=== PATIENT | male | born 1955 | race Caucasian/White ===

== ENCOUNTER → 2017-01-23 16:37 | Emergency (ER) | payer OTHER ==
[~2017-01-23 16:37] MED LIST: ABILIFY PO; ACIPHEX20 MG; ADVIL200 M2; ANTIVERT PO; ASPIRIN81 M1; ASPIRIN81 M1 PO; ASPIRIN81 M2 PO; ASPIRINEC PO; ATARAX PO; AZITHROMYCIN500 MG PO; BACTRIM DS TABL1 TA1 PO; BENTYL20 MG PO; BUPROPION XL300 MG PO; EC-NAPROSYN500 MG PO; GLUCOTROL10 MG PO; GLUCOVANCE PO; GLYNASE PO; HYDROXYZINE PAM25 MG PO; HYTRIN; IBUPROFEN600 MG PO; IBUPROFEN800 MG PO; JANUVIA PO; JANUVIA100 MG; JANUVIA25 MG PO; KLONOPIN0.5 MG PO; LANTUS100 U/ML SUBQ; LANTUS100 UNITS/; LANTUS100 UNITS/ SUBQ; LATUDA80 MG PO; LISINOPRIL; LITHIUM CARBON300 M1 PO; LITHIUM CARBON600 MG; LITHIUM PO; LOPID600 MG PO; MECLIZINE HCL25 M1 PO; MEDI-MECLIZINE25 M1 PO; MELATONIN3 MG PO; METFORMIN HCL500 M1 PO; METFORMIN PO; MOBIC; MOTRIN600 MG PO; NAPROXEN PO; NEXIUM PO; NORVASC PO; NORVASC10 MG PO; OMNICEF300 MG PO; PLAVIX PO; PRILOSEC PO; PRILOSEC20 M1; PRILOSEC20 MG PO; PROCARDIA XL PO; PROTONIX PO; SEROQUEL PO; SEROQUEL100 MG PO; SEROQUEL50 M1 PO; ST. JOSEPH ASPI81 M2 PO; TYLENOL325 M1 PO; VIAGRA PO; VICODIN PO; WELLBUTRIN PO; WELLBUTRIN SR200 MG PO; WELLBUTRIN XL150 M1 PO
== END | disposition left against medical advice (07) ==
LOC: CED 16:37
DX: Z53.21 Procedure and treatment not carried out due to patient leaving prior to being seen by health care provider (principal)

== ENCOUNTER 2017-02-27 05:26 | Inpatient (IN) | payer OTHER ==
--- NOTE | ~2017-02-27 | EKG ---
PATIENT: SAADIA FLOWERS UNIT #: [id number] Ventricular Rate: 87 BPM Atrial Rate: 87 BPM P-R Interval: 166 ms QRS Duration: 114 ms Q-T Interval: 400 ms QTC Calculation(Bezet): 481 ms P [place]: 56 degrees Calculated R [place]: -13 degrees Calculated T [place]: 46 degrees Diagnosis Line: Normal sinus rhythm Diagnosis Line: Incomplete right bundle branch block with Diagnosis Line: repolarization abnormality Baseline wander Diagnosis Line: Prolonged QT Diagnosis Line: Abnormal ECG Diagnosis Line: When compared with ECG of 11-SEP-2016 15:09, Diagnosis Line: QT has lengthened Diagnosis Line: Confirmed by ELVIRA BARNES MD ([id number]) on 03/01/2017 Diagnosis Line: 9:44:15 AM INTERPRETING MD: CAMERON HUFF
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
--- NOTE | ~2017-02-27 | CO ---
Unit #: [id number] #: [id number] Patient: SAADIA SHRESTHA [id number] [place], [place] [address] [id number] I MR#: [id number] NAME: SAADIA SHRESTHA. ROOM: 339 Age: 61 Sex: M Admission Date: 02/27/2017 : 1955 Attending Physician: Victoriano Del Cid M.D. Primary Care Physician: No Primary Care Physician Consultation Date: 03/02/2017 CONSULTATION REPORT REASON FOR CONSULTATION Followup. DISCUSSION Mr. Saadia Shrestha is a 61-year-old white male seen in room 339 bed-1 on 03/02/17. The patient was admitted with lithium toxicity, confusion and was in a manic state. Patient was also seen by neurology yesterday and stopped his Latuda, Seroquel due to extrapyramidal symptom. Patient's lithium was already discontinued due to lithium toxicity. [place] level 0.3. Patient was alert, oriented, able to sleep, able to answer questions coherently. Denied any thoughts of harming self or others or any hallucination. Patient is on a lower dosage of Wellbutrin 150 mg in the morning and seems to be doing fine. The patient is also on Klonopin. MENTAL STATUS EXAMINATION VITAL SIGNS: 97.3, 73, 20, 126/76. Oxygen saturation 98%. GENERAL APPEARANCE: Patient dressed casually in hospital attire, sitting comfortably in bed in the propped up position. Attention span and concentration fair. Speech - regular rate, coherent. Oriented in time, place and person. Mood and affect was labile. Thought process circumstantial. Thought content - patient denied any thoughts of harming self or others. Recent and remote memory fair. Language intact. Fund of knowledge fair. Insight and judgment fair to slightly impaired. DIAGNOSIS PSYCHIATRIC: Mood disorder, not otherwise specified - F31.89. [place] toxicity. ASSESSMENT/PLAN 1. Supportive psychotherapy and psychoeducation provided to patient. 2. Educated about benefits and side effects of medications and course and prognosis of illness. 3. Advised to continue with the current combination of medication, to keep the medication at a minimum as possible. Advised patient to follow up at partial hospitalization program at [facility] [place] upon discharge. Telephone number [phone]. Dictated by... Alfonso Carrasco M.D. Unit #: [id number] #: [id number] Patient: SAADIA SHRESTHA SANDY/camilo TD: 03/03/2017 10:15 JOB #: [id number] CONSULTATION REPORT Page 1 of 1 X Alfonso Carrasco MD X CONSULTATION REPORT
--- NOTE | ~2017-02-27 | CT71 ---
[facility] A Service of [facility] RADIOLOGY TEXT RESULTS PATIENT: SAADIA FLOWERS LOCATION: [facility] 339-01 : 55 UNIT #: [id number] AGE: [address]: Candace Walker MD SEX: M ORDER DR: [id number] [facility]. [place], [place] [address] [id number] I MR#: [id number] Acc #: [id number] NAME: SAADIA FLOWERS. : 1955 SEX: M STUDY DATE/TIME: 02/27/2017 9:08 UNIT: CEDOF ROOM: 78275 STUDY DESCRIPTION: CT Head Wo Contrast Attending Physician: Candace Walker M.D. Ordering Physician: Wily Decker M.D. Primary Care Physician: No Primary Care Physician MEDICAL IMAGING REPORT This report is preliminary unless electronic signature is present EXAM CT head without contrast INDICATION Confusion and dizziness today. TECHNIQUE CT of the head was performed without contrast. Comparison with 07/31/2010. This CT exam was performed with one or more of the following radiation dose reduction techniques: automatic exposure control, adjustment of mA and/or kV according to patient size, and iterative reconstruction. FINDINGS There is no evidence for intracranial hemorrhage. There is no evidence for acute cortical based infarction, focal mass lesion, or hydrocephalus. Carotid siphon calcifications. The included orbits and paranasal sinuses are unremarkable. The bone windows are unremarkable. IMPRESSION No acute intracranial abnormality. Dictated by... Delta Maldonado M.D. THIS IS AN ELECTRONICALLY VERIFIED REPORT Delta Maldonado M.D. at 02/27/2017 5:01 PM ARS/aa TD: 02/27/2017 11:18 JOB #: [id number] [facility] A Service of [facility] RADIOLOGY TEXT RESULTS PATIENT: SAADIA FLOWERS LOCATION: [facility] 339-01 : 55 UNIT #: [id number] AGE: [address]: Candace Walker MD SEX: M ORDER DR: MEDICAL IMAGING REPORT Page 1 of 1 COPY
--- NOTE | ~2017-02-27 | DS ---
Unit #: [id number] #: [id number] Patient: SAADIA FLOWERS [id number] [address] [id number] I MR#: [id number] NAME: SAADIA FLOWERS. ROOM: 339 Age: 61 Sex: M Admission Date: 02/27/2017 : 1955 Discharge Date: 03/02/2017 Attending Physician: Victoriano Del Cid M.D. DISCHARGE SUMMARY DISCHARGE DIAGNOSES 1. Bipolar disorder with marion with symptom of racing thoughts. 2. [place] toxicity. 3. Tardive dyskinesia secondary to antipsychotic usage. 4. Hypoglycemia. 5. Hyperlipidemia. 6. Gastroesophageal reflux disease, 7. Hepatic steatosis. 8. Thrombocytopenia likely due to antipsychotic usage. CONSULTANTS 1. Dr. Carrasco, Psychiatry. 2. Marita Christensen A.P.R.N., Neurology. PROCEDURES None. DIAGNOSTIC STUDIES LABORATORY ON DAY OF DISCHARGE: BMP with glucose 139, BUN 12, creatinine 0.9, sodium 140, potassium 3.9, chloride 110, CO2 of 25, calcium 9.2, total protein 5.8, albumin 3.6, total bilirubin 0.6, AST 16, ALT 22, and alkaline phosphatase of 54. Hemoglobin A1c is 6.4. CBC with WBC of 6.4, RBC 4.11, hemoglobin 13.2, hematocrit 38.1, MCV 92.8, MCH 32.1, MCHC 34.6, RDW 13.8, platelets 95,000, and MPV 10.6. IMAGING: CT head on February 27, 2017, impression: No acute intracranial abnormality. HOSPITAL COURSE The patient is a pleasant 61-year-old male with a past medical history of bipolar disorder, essential hypertension, hyperlipidemia, diabetes, GERD, and hepatic steatosis, who presented to the emergency department due to racing thoughts. Patient had not slept for five days. He stated that he had frequent falls. He denied hitting his head. He denied chest pain and denied any trouble breathing. He stated he had been taking his medications as prescribed. He stated that he sees a psychiatric through the [facility] and sees the psychiatrist almost every other month. In the emergency department, initial pulse was 95 and blood pressure was 149/90. CT of the head was unremarkable. [place] level was elevated at 1.4. Glucose check was 61. He was given one liter of normal saline and was admitted to [facility] for further evaluation. He was seen in consultation by Neurology due to extrapyramidal symptoms Unit #: [id number] #: [id number] Patient: SAADIA FLOWERS and frequent falls, who thought that his extrapyramidal symptoms were leading to his frequent falls. Therefore, they decided to hold off on all additional lithium usage and has been holding off on his Seroquel as well. With a concern for bipolar disorder, patient was seen in consultation by Dr. Carrasco of Psychiatry, who agreed that he should remain off of lithium due to lithium toxicity and recommended to reduce his Wellbutrin to 150 mg in the morning, as well as increasing Seroquel to 200 mg at bedtime. At this time, patient's symptoms have significantly improved, and patient and his are agreeable to being discharged home. Please note that after Psychiatry had seen the patient, Marita Christensen, of Neurology had spoken with Dr. Carrasco, who agreed to hold Seroquel, as well as holding lithium. The only question left is for patient's extrapyramidal activities. Neurology had started him on Klonopin, and I will defer to Neurology whether to continue and to prescribe it or not for this patient. DISCHARGE CONDITION Stable. [facility] two [facility]. ACTIVITY Patient can resume activities as prior to hospitalization. I am recommending that patient be seen by home health for continued PT and OT. DISCHARGE DIET Unrestricted. Patient may resume a heart-healthy diet as prior to hospitalization. DISCHARGE MEDICATIONS 1. Wellbutrin 150 mg orally every morning. 2. Metformin 1000 mg orally twice daily. 3. Januvia 100 mg orally daily. 4. Hydroxyzine 25 mg orally daily as needed for agitation. 5. Norvasc 5 mg orally daily. 6. Insulin 50 units subcutaneously at bedtime. 7. Melatonin 3 mg orally at bedtime. 8. Aspirin 81 mg orally daily. 9. Naproxen 500 mg orally twice daily as needed. 10. Prilosec 40 mg orally daily. 11. Viagra 100 mg orally daily as needed for ED. Dictated by... Alanis Wu PA-C for Victoriano Del Cid M.D. TP/am TD: 03/02/2017 17:03 JOB #: [id number] Dictated by... Alanis Wu PA-C for Unit #: [id number] #: [id number] Patient: SAADIA FLOWERS Victoriano Del Cid M.D. TP/am TD: 03/02/2017 17:37 JOB #: [id number] DISCHARGE SUMMARY Page 1 of 1 X X DISCHARGE SUMMARY
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
[~2017-02-27 05:26] MED LIST changes: -ASPIRIN81 M2 PO; -BUPROPION XL300 MG PO; -HYDROXYZINE PAM25 MG PO; -JANUVIA25 MG PO; -KLONOPIN0.5 MG PO; -LANTUS100 UNITS/ SUBQ; -LATUDA80 MG PO; -MECLIZINE HCL25 M1 PO; -MELATONIN3 MG PO; -NAPROXEN PO; -PRILOSEC PO; -SEROQUEL100 MG PO; -SEROQUEL50 M1 PO; -VIAGRA PO; -WELLBUTRIN XL150 M1 PO
[2017-02-27 06:22] LABS: BASOPHIL# 0.1 X10e3 (0-0.3); BASOPHIL% 0.8 % (0-2.5); EOSINOPHIL# 0.2 X10e3 (0-0.7); EOSINOPHIL% 1.3 % (0.0-7.0); HEMATOCRIT 38.3 % (38.0-50.0); HEMOGLOBIN 13.4 gm/dL (13.0-16.0); LYMPHOCYTE# 0.8 X10e3 (1.0-3.5); LYMPHOCYTE% 7.3 % (17.0-45.0); MEAN CELL VOLUME 91.9 FL (83-96); MEAN CORPUSCULAR HEMOGLOBIN 32.1 PG (28-34); MEAN PLATELET VOLUME 10.7 FL (6.5-11.5); MONOCYTE# 0.8 X10e3 (0-1.0); MONOCYTE% 7.5 % (3.0-12.0); NEUTROPHIL# 9.3 X10e3 (1.5-7.1); NEUTROPHIL% 83.1 % (40-75); PLATELET COUNT 103 X10e3 (140-420); RED BLOOD COUNT 4.16 X10e (3.90-5.60); RED CELL DISTRIBUTION WIDTH 13.4 % (11.0-15.5); WHITE BLOOD COUNT 11.2 X10e3 (4.0-10.5)
[2017-02-27 06:25] LABS: DIFF IND NO
[2017-02-27 06:55] LABS: ALBUMIN SERUM 4.3 g/dL (3.5-5.0); ALCOHOL BLOOD <5 mg/dL (0); ALKALINE PHOSPHATASE 56 U/L (32-92); ALT (SGPT) 25 U/L (10-40); AST (SGOT) 24 U/L (10-42); BILIRUBIN, DIRECT 0.1 mg/dL (0.0-0.2); BILIRUBIN,INDIRECT 0.7 mg/dL (0.0-0.9); BILIRUBIN,TOTAL 0.8 mg/dL (0.2-2.0); BLOOD UREA NITROGEN 17 mg/dL (9-23); BUN/CREATININE RATIO 15.45; CALCIUM SERUM 9.8 mg/dL (8.4-10.2); CARBON DIOXIDE 21 mmol/L (22-31); CHLORIDE 105 mmol/L (100-111); CREATININE SERUM 1.1 mg/dL (0.6-1.4); GLOM FILT RATE Estimated 72.1 mL/min (>60); GLUCOSE FASTING 166 mg/dL (70-110); POTASSIUM 3.8 mmol/L (3.5-5.1); PROTEIN TOTAL SERUM 6.5 g/dL (6.0-8.3); SODIUM 137 mmol/L (135-145)
[2017-02-27 07:14] LABS: URINE SOURCE CLEAN CATCH
[2017-02-27 07:21] LABS: URINE APPEARANCE CLEAR; URINE BILIRUBIN NEG (NEG); URINE BLOOD NEG (NEG); URINE COLOR YELLOW; URINE GLUCOSE NEG (NEG); URINE KETONE NEG (NEG); URINE LEUKOCYTE ESTERASE TRACE (NEG); URINE NITRATE NEG (NEG); URINE PH 6.5 (5-8); URINE PROTEIN NEG (NEG); URINE SPECIFIC GRAVITY 1.015 (1.003-1.035)
[2017-02-27 07:24] LABS: CULTURE INDICATED? NO; U HYALINE CASTS AUWI 0-2 /[LPF]; URBCS1 AUWI 0-2 /[HPF] (0-2); URINE BACTERIA AUWI NEG (NEGATIVE); URINE SQUAMOUS EPITHELIAL CELL NONE SEEN /[HPF]; UWBCS1 AUWI 0-2 (0-5)
[2017-02-27 07:31] LABS: AMPHETAMINE NEG (NEG); BARBITURATES NEG (NEG); BENZODIAZEPINES NEG (NEG); COCAINE NEG (NEG); MARIJUANA NEG (NEG); OPIATES NEG (NEG); TRICYCLIC ANTIDEPRESSANTS NEG (NEG); U METHADONE NEG (NEG)
[2017-02-27] MEDS ORDERED: LITHIUM PO ×2 (07:33→09:56)
[2017-02-27] MEDS ORDERED: SEROQUEL50 M1 PO (07:34)
[2017-02-27] MEDS ORDERED: ABILIFY PO (07:34)
[2017-02-27] MEDS ORDERED: METFORMIN PO (07:35)
[2017-02-27] MEDS ORDERED: WELLBUTRIN SR200 MG PO (07:35)
[2017-02-27] MEDS ORDERED: LANTUS100 UNITS/ SUBQ (07:35)
[2017-02-27] MEDS ORDERED: JANUVIA25 MG PO (07:35)
[2017-02-27] MEDS ORDERED: NAPROXEN PO (07:36)
[2017-02-27] MEDS ORDERED: ASPIRIN81 M2 PO (07:36)
[2017-02-27] MEDS ORDERED: NORVASC PO (09:52)
[2017-02-27] MEDS ORDERED: MECLIZINE HCL25 M1 PO (09:52)
[2017-02-27] MEDS ORDERED: LATUDA80 MG PO (09:52)
[2017-02-27] MEDS ORDERED: PRILOSEC PO (09:53)
[2017-02-27] MEDS ORDERED: VIAGRA PO (09:53)
[2017-02-27] MEDS ORDERED: HYDROXYZINE PAM25 MG PO (09:57)
[2017-02-27] MEDS ORDERED: MELATONIN3 MG PO (09:58)
[2017-02-27] MEDS ORDERED: SEROQUEL100 MG PO (09:58)
[2017-02-27] MEDS ORDERED: BUPROPION XL300 MG PO (09:59)
[2017-02-27 11:17] LABS: %MB 4.6 % (0.0-4.0); MB 10.5 ng/ml
[2017-02-27 17:20] LABS: %MB 4.2 % (0.0-4.0); MB 10.9 ng/ml
[2017-02-27 23:37] LABS: %MB 3.9 % (0.0-4.0); MB 7.2 ng/ml
[2017-02-28 05:32] LABS: HEMATOCRIT 38.5 % (38.0-50.0); HEMOGLOBIN 13.4 gm/dL (13.0-16.0); MEAN CELL VOLUME 92.7 FL (83-96); MEAN CORPUSCULAR HEMOGLOBIN 32.3 PG (28-34); MEAN CORPUSCULAR HGB CONC 34.9 g/dL (30-36); MEAN PLATELET VOLUME 10.6 FL (6.5-11.5); RED BLOOD COUNT 4.15 X10e (3.90-5.60); RED CELL DISTRIBUTION WIDTH 13.6 % (11.0-15.5); WHITE BLOOD COUNT 7.4 X10e3 (4.0-10.5)
[2017-02-28 05:53] LABS: ALBUMIN SERUM 3.6 g/dL (3.5-5.0); BILIRUBIN,TOTAL 0.6 mg/dL (0.2-2.0); BUN/CREATININE RATIO 13.33; CREATININE SERUM 0.9 mg/dL (0.6-1.4); GLOM FILT RATE Estimated 91.9 mL/min (>60); POTASSIUM 3.8 mmol/L (3.5-5.1); PROTEIN TOTAL SERUM 5.8 g/dL (6.0-8.3)
[2017-02-28 06:23] LABS: %MB 3.6 % (0.0-4.0)
[2017-03-01 05:53] LABS: HEMOGLOBIN 13.6 gm/dL (13.0-16.0); MEAN CELL VOLUME 91.8 FL (83-96); MEAN CORPUSCULAR HGB CONC 34.9 g/dL (30-36); MEAN PLATELET VOLUME 10.1 FL (6.5-11.5); RED BLOOD COUNT 4.25 X10e (3.90-5.60); RED CELL DISTRIBUTION WIDTH 13.7 % (11.0-15.5); WHITE BLOOD COUNT 6.8 X10e3 (4.0-10.5)
[2017-03-01 07:08] LABS: BUN/CREATININE RATIO 13.33; CALCIUM SERUM 9.2 mg/dL (8.4-10.2); CREATININE SERUM 0.9 mg/dL (0.6-1.4); GLOM FILT RATE Estimated 91.9 mL/min (>60); POTASSIUM 3.9 mmol/L (3.5-5.1)
[2017-03-02 05:33] LABS: HEMATOCRIT 38.1 % (38.0-50.0); HEMOGLOBIN 13.2 gm/dL (13.0-16.0); MEAN CELL VOLUME 92.8 FL (83-96); MEAN CORPUSCULAR HEMOGLOBIN 32.1 PG (28-34); MEAN CORPUSCULAR HGB CONC 34.6 g/dL (30-36); MEAN PLATELET VOLUME 10.6 FL (6.5-11.5); RED BLOOD COUNT 4.11 X10e (3.90-5.60); RED CELL DISTRIBUTION WIDTH 13.8 % (11.0-15.5); WHITE BLOOD COUNT 6.4 X10e3 (4.0-10.5)
[2017-03-02] MEDS ORDERED: WELLBUTRIN XL150 M1 PO (16:25)
[2017-03-02] MEDS ORDERED: KLONOPIN0.5 MG PO (16:40)
== END 2017-03-02 18:10 | disposition home health service (06) | DRG 885 ==
LOC: CED 05:26 → C3A PCU 10:13 → CEDOF 10:13 → CED 10:13 → CEDOF 10:19 → CED 10:19 → C3A PCU 10:19 → CEDOF 12:05 → C3A PCU 12:07
PROVIDERS: Emergency Medicine; Family Medicine; Internal Medicine; Physician Assistant Medical
DX: F31.9 Bipolar disorder, unspecified (principal); D69.59 Other secondary thrombocytopenia; K75.81 Nonalcoholic steatohepatitis (NASH); G24.01 Drug induced subacute dyskinesia; T43.505A Adverse effect of unspecified antipsychotics and neuroleptics, initial encounter; I10 Essential (primary) hypertension; E78.5 Hyperlipidemia, unspecified; E11.9 Type 2 diabetes mellitus without complications; K21.9 Gastro-esophageal reflux disease without esophagitis; Z91.81 History of falling; Z79.82 Long term (current) use of aspirin; E16.2 Hypoglycemia, unspecified; Z79.4 Long term (current) use of insulin; Z79.899 Other long term (current) drug therapy
CPT/HCPCS: 36415; 70450; 80048; 80053; 80076; 80178; 80307; 81003; 82550; 82553; 82947; 83036; 84443; 84484; 85025; 85027; 93005; 96360; 97116; 97163; 97166; 97530; 97535; 99285; G0480

== ENCOUNTER 2017-04-04 08:43 | Emergency (ER) | payer OTHER ==
--- NOTE | ~2017-04-04 | EKG ---
PATIENT: SAADIA FLOWERS UNIT #: [id number] Ventricular Rate: 74 BPM Atrial Rate: 74 BPM P-R Interval: 160 ms QRS Duration: 102 ms Q-T Interval: 400 ms QTC Calculation(Bezet): 444 ms P [place]: 51 degrees Calculated R [place]: -17 degrees Calculated T [place]: 57 degrees Diagnosis Line: Normal sinus rhythm Diagnosis Line: Incomplete right bundle branch block Diagnosis Line: Borderline ECG Diagnosis Line: Diagnosis Line: Confirmed by LYDIA APPLE MD ([id number]) on 04/05/2017 Diagnosis Line: 7:29:19 AM INTERPRETING MD: ZECHARIAH HUFF
--- NOTE | ~2017-04-04 | CT71 ---
[facility] A Service of [facility] RADIOLOGY TEXT RESULTS PATIENT: SAADIA FLOWERS LOCATION: [facility] : [birth year] UNIT #: [id number] AGE: [address]: Wily Decker MD SEX: M ORDER DR: [id number] [facility] [address]. [place], [place] [address] [id number] MR#: [id number] Acc #: [id number] NAME: SAADIA FLOWERS : 1955 SEX: M STUDY DATE/TIME: 04/04/2017 13:09 UNIT: [facility] ROOM: STUDY DESCRIPTION: CT Head Wo Contrast Attending Physician: Wily Decker M.D. Ordering Physician: Wily Decker M.D. Primary Care Physician: No Primary Care Physician MEDICAL IMAGING REPORT This report is preliminary unless electronic signature is present EXAMINATION Noncontrast CT head. DATE 04/04/2017 HISTORY 61-year-old male with weakness and dizziness, headache on the left side of the top of the head since yesterday. [facility] team called to patient today. Additional history of hypertension, diabetes. COMPARISON CT head without contrast, 02/27/2017. TECHNIQUE This CT exam was performed with one or more of the following radiation dose reduction techniques: automatic exposure control, adjustment of mA and/or kV according to patient size, and iterative reconstruction. FINDINGS No acute intracranial hemorrhage, mass lesion, mass effect or midline shift is seen. [place] matter - white matter junction distension appears preserved without evidence of acute or evolving infarct. Chronic-appearing lacunar infarcts are demonstrated in the bilateral basal ganglia. Ventricular configuration is stable. Mastoid air cells appear clear. Moderate intracranial coronary artery calcifications are present. Paranasal sinuses are clear. No acute calvarial abnormalities. IMPRESSION 1. No acute intracranial findings. 2. Chronic bilateral basal ganglia calcifications. 3. No significant change compared to 02/27/2017. [facility] A Service of [facility] RADIOLOGY TEXT RESULTS PATIENT: SAADIA FLOWERS LOCATION: [facility] : 55 UNIT #: [id number] AGE: [address]: Wily Decker MD SEX: M ORDER DR: Dictated by... Annette Martinez M.D. THIS IS AN ELECTRONICALLY VERIFIED REPORT Annette Martinez M.D. at 04/05/2017 9:00 AM JEANNINE/gabriela TD: 04/04/2017 15:16 JOB #: [id number] MEDICAL IMAGING REPORT Page 1 of 1 COPY
[~2017-04-04 08:43] MED LIST changes: +ASPIRIN81 M2 PO; +BUPROPION XL300 MG PO; +HYDROXYZINE PAM25 MG PO; +JANUVIA25 MG PO; +KLONOPIN0.5 MG PO; +LANTUS100 UNITS/ SUBQ; +LATUDA80 MG PO; +MECLIZINE HCL25 M1 PO; +MELATONIN3 MG PO; +NAPROXEN PO; +PRILOSEC PO; +SEROQUEL100 MG PO; +SEROQUEL50 M1 PO; +VIAGRA PO; +WELLBUTRIN XL150 M1 PO
[2017-04-04 10:32] LABS: BASOPHIL# 0.1 X10e3 (0-0.3); BASOPHIL% 1.1 % (0-2.5); EOSINOPHIL# 0.2 X10e3 (0-0.7); EOSINOPHIL% 2.2 % (0.0-7.0); HEMATOCRIT 42.6 % (38.0-50.0); HEMOGLOBIN 14.7 gm/dL (13.0-16.0); LYMPHOCYTE# 1.5 X10e3 (1.0-3.5); LYMPHOCYTE% 22.2 % (17.0-45.0); MEAN CELL VOLUME 92.1 FL (83-96); MEAN CORPUSCULAR HEMOGLOBIN 31.8 PG (28-34); MEAN CORPUSCULAR HGB CONC 34.5 g/dL (30-36); MONOCYTE# 0.8 X10e3 (0-1.0); MONOCYTE% 11.2 % (3.0-12.0); NEUTROPHIL# 4.3 X10e3 (1.5-7.1); NEUTROPHIL% 63.3 % (40-75); PLATELET COUNT 89 X10e3 (140-420); RED BLOOD COUNT 4.62 X10e (3.90-5.60); RED CELL DISTRIBUTION WIDTH 13.4 % (11.0-15.5); WHITE BLOOD COUNT 6.7 X10e3 (4.0-10.5)
[2017-04-04 10:33] LABS: DIFF IND YES
[2017-04-04 11:01] LABS: ALBUMIN SERUM 4.4 g/dL (3.5-5.0); BILIRUBIN, DIRECT 0.1 mg/dL (0.0-0.2); BILIRUBIN,INDIRECT 0.7 mg/dL (0.0-0.9); BILIRUBIN,TOTAL 0.8 mg/dL (0.2-2.0); BUN/CREATININE RATIO 16.66; CALCIUM SERUM 9.5 mg/dL (8.4-10.2); CREATININE SERUM 0.9 mg/dL (0.6-1.4); GLOM FILT RATE Estimated 91.9 mL/min (>60); POTASSIUM 4.2 mmol/L (3.5-5.1); PROTEIN TOTAL SERUM 6.9 g/dL (6.0-8.3)
[2017-04-04 11:07] LABS: PLATELET ESTIMATE DECREASED (NORMAL)
[2017-04-04 11:42] LABS: URINE SOURCE CLEAN CATCH
[2017-04-04 11:51] LABS: URINE APPEARANCE CLEAR; URINE BILIRUBIN NEG (NEG); URINE BLOOD 1+ (NEG); URINE COLOR YELLOW; URINE GLUCOSE NEG (NEG); URINE KETONE NEG (NEG); URINE LEUKOCYTE ESTERASE NEG (NEG); URINE NITRATE NEG (NEG); URINE PH 5.5 (5-8); URINE PROTEIN NEG (NEG); URINE SPECIFIC GRAVITY 1.025 (1.003-1.035)
[2017-04-04 11:54] LABS: URINE BACTERIA AUWI NEG (NEGATIVE); URINE SQUAMOUS EPITHELIAL CELL NONE SEEN /[HPF]; UWBCS1 AUWI 0-2 (0-5)
[2017-04-04 11:55] LABS: CULTURE INDICATED? NO
== END 2017-04-04 16:20 | disposition home or self-care (01) ==
LOC: CED 08:43
PROVIDERS: Emergency Medicine
DX: R53.1 Weakness (principal); E11.9 Type 2 diabetes mellitus without complications; I10 Essential (primary) hypertension; K21.9 Gastro-esophageal reflux disease without esophagitis; F31.9 Bipolar disorder, unspecified; Z88.5 Allergy status to narcotic agent; Z79.82 Long term (current) use of aspirin; Z79.4 Long term (current) use of insulin; Z79.899 Other long term (current) drug therapy
CPT/HCPCS: 36415; 70450; 80048; 80076; 81003; 82947; 85025; 93005; 99285